=== PATIENT | male | born 1985 | race Caucasian/White ===

== ENCOUNTER 2018-11-27 15:56 | Observation (INO) | payer OTHER ==
[~2018-11-27] VITALS: Ht 190.5 cm; Wt 111.5 kg
[2018-11-27] MEDS ORDERED: WARF5 PO (16:18)
[2018-11-27 16:35] LABS: Calcium, Ionized (POC) 1.09 mmol/L (1.10-1.46); Chloride (POC) 106 mmol/L (98-108); Creatinine (POC) 0.7 mg/dL (0.8-1.3); Glucose (ISTAT POC) 134 mg/dL (70-99); Hemoglobin (POC) 14.6 g/dL (13.5-17.5); Sodium (POC) 140 mmol/L (135-148); Total CO2 (POC) 17 mmol/L (21-32)
[2018-11-27 16:43] LABS: BASOPHILS ABSOLUTE AUTO 0.05 K/mm3 (0.00-0.23); BASOPHILS PERCENT AUTO 1 % (0-2); EOSINOPHILS ABSOLUTE AUTO 0.18 K/mm3 (0.00-0.68); EOSINOPHILS PERCENT AUTO 3 % (0-6); Hematocrit 44.1 % (37.0-53.0); Hemoglobin 15.2 g/dL (13.5-17.5); IMMATURE GRAN ABSOLUTE AUTO 0.02 K/mm3 (0.00-0.10); IMMATURE GRAN PERCENT AUTO 0 % (0-1); LYMPHOCYTES ABSOLUTE AUTO 2.05 K/mm3 (0.84-5.20); LYMPHOCYTES PERCENT AUTO 33 % (21-46); MONOCYTES ABSOLUTE AUTO 0.45 K/mm3 (0.16-1.47); MONOCYTES PERCENT AUTO 7 % (4-13); Mean Corpuscular HGB 29.1 pg (26.0-34.0); Mean Corpuscular HGB Conc 34.5 g/dL (31.5-36.5); Mean Corpuscular Volume 84 fL (80-100); Mean Platelet Volume 9.3 fL (9.1-12.4); NEUTROPHILS ABSOLUTE AUTO 3.44 K/mm3 (1.96-9.15); NEUTROPHILS PERCENT AUTO 56 % (41-73); Platelet Count 313 K/mm3 (150-400); RDW Coefficient Variation 11.9 % (11.7-14.2); RDW Standard Deviation 35.8 fL (35.1-46.3); Red Blood Cell Count 5.23 M/mm3 (4.30-5.90); White Blood Cell Count 6.19 K/mm3 (4.00-11.30)
[2018-11-27 17:00] LABS: International Normalized Ratio 1.01; Prothrombin Time Results 10.7 Sec (9.7-11.5)
[2018-11-27 17:06] LABS: Alanine Aminotransfer (ALT/SGP 76 U/L (12-78); Albumin, Blood 4.2 g/dL (3.4-5.0); Albumin/Globulin Ratio 1.4 (0.8-1.8); Alk Phos 77 U/L (50-136); Anion Gap 8 mmol/L (6-16); Aspartate Aminotrans (AST/SGOT 33 U/L (12-37); Bilirubin, Total 0.5 mg/dL (0.1-1.0); Blood Urea Nitrogen 11 mg/dL (8-24); Bun/Creatinine Ratio 15.6 (12.0-20.0); CO2, Blood 20 mmol/L (21-32); Calcium, Blood 9.3 mg/dL (8.5-10.1); Chloride, Blood 110 mmol/L (98-108); Creatinine, Blood 0.71 mg/dL (0.60-1.20); Globulin, Blood 2.9 g/dL (2.2-4.0); Glomerular Filtration Rate >60 (60-); Glucose, Blood 131 mg/dL (70-99); Potassium, Blood 3.1 mmol/L (3.5-5.5); Sodium, Blood 138 mmol/L (136-145); Total Protein, Blood 7.1 g/dL (6.4-8.2); Troponin I <0.015 ng/mL (0.000-0.040)
[2018-11-27 17:45] LABS: U Amphetamine Screen Not Detected; U Barbituate Screen Not Detected; U Benzodiazapine Screen Not Detected; U Buprenorphine Screen Not Detected; U Cannabinoids Screen Not Detected; U Cocaine Screen Not Detected; U Methadone Screen Not Detected; U Methamphetamine Screen Not Detected; U Opiates Screen Not Detected; U Oxycodone Screen Not Detected; U Phencyclidine Screen Not Detected; U Propoxyphene Screen Not Detected
[2018-11-27 19:11] LABS: U Amphetamine Screen Not Detected; U Barbituate Screen Not Detected; U Benzodiazapine Screen Not Detected; U Buprenorphine Screen Not Detected; U Cannabinoids Screen Not Detected; U Cocaine Screen Not Detected; U Methadone Screen Not Detected; U Methamphetamine Screen Not Detected; U Opiates Screen Not Detected; U Oxycodone Screen Not Detected; U Phencyclidine Screen Not Detected; U Propoxyphene Screen Not Detected
--- NOTE | 2018-11-27 22:15 | NUR ---
PCU ADMIT PT BROUGHT TO PCU RM 13 BY SUDHIR FROM ER @ APPROX 2114. PT ABLE TO STAND AND AMBULATE TO PCU BED W/ SBA. PT A&O X4. VSS. PT'S SPOUSE ACCOMPANYING PT. PT DENIES CP, N&V, N&T. MONITOR SHOWS AFLUTTER, HR 70'S. LUNG SOUNDS CLEAR, SPO2 > 92% ON RA. CARDIOLOGY CONSULT CALLED TO ANSWERING SERVICE. ECHO TO BE DONE TOMORROW. WILL CONTINUE TO MONITOR AND PROVIDE CARE.
--- NOTE | 2018-11-28 04:23 | NUR ---
SHIFT SUMMARY PT A&O X4. VSS. PT SLEEPING MAJORITY OF SHIFT. NO CHANGES OR EVENTS THIS SHIFT. MONITOR SHOWS AFLUTTER, HR 70-90. NS GTT INFUSING PER ORDERS. WILL CONTINUE TO MONITOR AND PROVIDE CARE UNTIL REPORT OFF TO DAY SHIFT RN.
[2018-11-28 04:51] LABS: Anion Gap 6 mmol/L (6-16); Blood Urea Nitrogen 12 mg/dL (8-24); CO2, Blood 24 mmol/L (21-32); Calcium, Blood 8.7 mg/dL (8.5-10.1); Chloride, Blood 111 mmol/L (98-108); Creatinine, Blood 0.71 mg/dL (0.60-1.20); Glomerular Filtration Rate >60 (60-); Glucose, Blood 106 mg/dL (70-99); Magnesium, Blood 2.4 mg/dL (1.6-2.4); Potassium, Blood 4.1 mmol/L (3.5-5.5); Sodium, Blood 141 mmol/L (136-145)
--- NOTE | 2018-11-28 05:30 | NUR ---
REPORT FROM MT OF PT HAVING A 3.199 SEC PAUSE @ 0515 THIS AM WHILE PT SLEEPING. STRIP PRINTED AND PLACED IN CHART. PT CONTINUES TO BE IN ATRIAL FLUTTER, HR 70'S.
--- NOTE | 2018-11-28 08:00 | NUR ---
PT LAYING IN BED WATCHING TV, AT BEDSIDE, A/OX3, PLEASANT AND COOPERATIV WITH CARE, FOLLOWS COMMANDS WELL, DENIES COMPLAINTS OF PAIN, SOB OR DIZZINESS, LUNGS ARE CLEAR T/O, RESP EVEN AND UNLABORED, NO COUGH NOTED, HRR, TELE IN PLACE RUNNING AFLUTTER PER MONITOR, SEE STRIP, NO EDEMA NOTED, PPP+2, CAP REFILL <3SEC, VS STABLE, AFEBRILE, IV SITE IS CLEAR AND PATENT, BTX4, ABD FLAT SOFT NONTENDER, VOIDS WITHOUT DIFF, SKIN C/W/D, MAEW, SHANE, CALL LIGHT IN REACH.
--- NOTE | 2018-11-28 12:21 | NUR ---
DR. DOMINOG IS OK FOR PT TO GO HOME TODAY, THEN ON FRIDAY WILL MAKE ARRANGMENTS FOR PT TO GO TO [facility] FOR AN ABLASION, WALKED HIM IN CR WAY TO MAKE SURE NOT SYMPTOMATIC, HE STATES HE IS FINE. CALLED DR. CORTES AND SHE WILL DISCHARGE HIM. CALL LIGHT IN REACH.
[2018-11-28] MEDS ORDERED: METO25ER PO (12:26)
--- NOTE | 2018-11-28 12:54 | NUR ---
pt has been discharged to home, will see Dr. Escalante on friday for referral for ablasion in [place], iv removed intact, new medication was called into [facility] in [place]. went over diet for coumadin, left via ambulation with his .
== END 2018-11-28 12:53 | disposition home or self-care (01) ==
LOC: ER 15:56 → PCU 15:57
PROVIDERS: Emergency Medicine; Physician Assistant; ADMIT Family Medicine
DX: I48.3 Typical atrial flutter (principal); E87.6 Hypokalemia; R09.02 Hypoxemia; Z87.891 Personal history of nicotine dependence; Z79.01 Long term (current) use of anticoagulants; Z79.899 Other long term (current) drug therapy
CPT/HCPCS: 36415; 71046; 80047; 80048; 80053; 83735; 84443; 84484; 85014; 85025; 85610; 85730; 93005; 93010; 93306; 96361; 96374; 99285-25; G0378; J3480; J7030